=== PATIENT | male | born 1935 | race Asian ===

== ENCOUNTER 2019-01-05 15:27 | Inpatient (IN) | payer BC, MEDICAID ==
[2019-01-05 15:43] LABS: ADD MAN DIFF? NO
[2019-01-05 15:45] LABS: ABNORMAL IP MESSAGE 1; BASOPHILS % 0.2 % (0.0-2.0); EOSINOPHILS # 0.2 10^3/ul (0.0-0.5); EOSINOPHILS % 1.4 % (0.0-7.0); HEMATOCRIT 29.4 % (42.0-52.0); HEMOGLOBIN 9.2 g/dl (14.0-18.0); LYMPHOCYTES # 1.7 10^3/ul (0.8-2.9); LYMPHOCYTES % 10.1 % (15.0-51.0); MEAN CORPUSCULAR HEMOGLOBIN 30.1 pg (29.0-33.0); MEAN CORPUSCULAR HGB CONC 31.3 g/dl (32.0-37.0); MEAN CORPUSCULAR VOLUME 96.1 fl (82.0-101.0); MEAN PLATELET VOLUME 10.4 fl (7.4-10.4); MONOCYTE # 1.7 10^3/ul (0.3-0.9); MONOCYTES % 9.7 % (0.0-11.0); NEUTROPHIL # 13.2 10^3/ul (1.6-7.5); NEUTROPHILS % 77.8 % (39.0-77.0); PLATELET COUNT 199 10^3/UL (140-415); POSITIVE DIFF @See below; RED BLOOD COUNT 3.06 10^6/ul (4.70-6.10); RED CELL DISTRIBUTION WIDTH 15.7 % (11.5-14.5)
[2019-01-05] MEDS: SODIUM CHLORIDE 0.9% 1L BAG IV* (15:55)
[2019-01-05] MEDS: CEFEPIME 2GM/50 ML (PMX) 50 ML IVPB (15:56)
[2019-01-05 16:02] LABS: ALANINE AMINOTRANSFERASE 22 IU/L (13-69); ALBUMIN 3.5 g/dl (3.3-4.9); ALKALINE PHOSPHATASE 82 IU/L (42-121); ANION GAP 8 (5-13); ASPARTATE AMINO TRANSFERASE 19 IU/L (15-46); BILIRUBIN,INDIRECT 0.3 mg/dl (0-1.1); BILIRUBIN,TOTAL 0.3 mg/dl (0.2-1.3); BLOOD UREA NITROGEN 56 mg/dl (7-20); CALCIUM 8.7 mg/dl (8.4-10.2); CARBON DIOXIDE 26 mmol/L (21-31); CHLORIDE 104 mmol/L (97-110); CREATININE 1.24 mg/dl (0.61-1.24); GLUCOSE 159 mg/dl (70-220); POTASSIUM 5.1 mmol/L (3.5-5.1); SODIUM 138 mmol/L (135-144)
[2019-01-05 16:07] LABS: INR 0.89; PARTIAL THROMBOPLASTIN TIME 37.3 Sec (23.0-35.0); PROTIME 12.2 Sec (11.9-14.9)
[2019-01-05 16:10] LABS: ADD UMIC YES; UR ASCORBIC ACID 20 mg/dL (NEGATIVE); UR BACTERIA FEW /HPF (NONE SEEN); UR BILIRUBIN (Dip) NEGATIVE (NEGATIVE); UR BLOOD (Dip) NEGATIVE (NEGATIVE); UR BUDDING YEAST FEW /HPF (NONE SEEN); UR CLARITY CLEAR (CLEAR); UR COLOR STRAW (YELLOW); UR GLUCOSE (Dip) NEGATIVE (NEGATIVE); UR KETONES (Dip) NEGATIVE (NEGATIVE); UR LEUKOCYTE ESTERASE (Dip) 2+ Leu/ul (NEGATIVE); UR NITRITE (Dip) NEGATIVE (NEGATIVE); UR RBC 1 /HPF (0-5); UR SPECIFIC GRAVITY (Dip) 1.005 (1.003-1.030); UR TOTAL PROTEIN (Dip) NEGATIVE (NEGATIVE); UR UROBILINOGEN (Dip) NEGATIVE (NEGATIVE); UR WBC 12 /HPF (0-5)
[2019-01-05 16:13] LABS: TROPONIN-I 0.023 ng/ml (0.000-0.120)
[2019-01-05] MEDS: ACETAMINOPHEN 650MG/20.3ML CUP NGT (16:14)
[2019-01-05] MEDS: VANCOMYCIN 1 GM (PMX) 250 ML IVPB (16:34)
[2019-01-05 17:57] LABS: LACTIC ACID 1.2 mmol/L (0.5-2.0)
[2019-01-05] MEDS ORDERED: ONDANSETRON 4 MG INJ IV (20:00)
[2019-01-05] MEDS ORDERED: ACETAMINOPHEN 325 MG TAB PO (20:00)
[2019-01-05 20:02] LABS: LACTIC ACID 1.2 mmol/L (0.5-2.0)
[2019-01-06] MEDS ORDERED: ONDANSETRON 4 MG INJ IV
[2019-01-06] MEDS ORDERED: ACETAMINOPHEN 325 MG TAB GTB
[2019-01-06] MEDS ORDERED: ONDANSETRON 4 MG TAB GTB
[2019-01-06] MEDS ORDERED: NACL 0.9% 3 ML SYG IV
[2019-01-06 05:33] LABS: ADD MAN DIFF? NO
[2019-01-06 05:36] LABS: BASOPHIL # 0.1 10^3/ul (0.0-0.1); BASOPHILS % 0.3 % (0.0-2.0); EOSINOPHILS # 0.5 10^3/ul (0.0-0.5); EOSINOPHILS % 3.2 % (0.0-7.0); HEMATOCRIT 27.8 % (42.0-52.0); HEMOGLOBIN 8.7 g/dl (14.0-18.0); LYMPHOCYTES # 1.9 10^3/ul (0.8-2.9); MEAN CORPUSCULAR HEMOGLOBIN 30.1 pg (29.0-33.0); MEAN CORPUSCULAR HGB CONC 31.3 g/dl (32.0-37.0); MEAN CORPUSCULAR VOLUME 96.2 fl (82.0-101.0); MEAN PLATELET VOLUME 10.7 fl (7.4-10.4); MONOCYTE # 1.4 10^3/ul (0.3-0.9); MONOCYTES % 9.6 % (0.0-11.0); NEUTROPHIL # 10.8 10^3/ul (1.6-7.5); NEUTROPHILS % 72.7 % (39.0-77.0); PLATELET COUNT 179 10^3/UL (140-415); POSITIVE DIFF @See below; RED BLOOD COUNT 2.89 10^6/ul (4.70-6.10); RED CELL DISTRIBUTION WIDTH 15.9 % (11.5-14.5)
[2019-01-06 05:36] LABS: WHITE BLOOD COUNT 14.8 10^3/ul (4.8-10.8)
[2019-01-06 05:57] LABS: ALANINE AMINOTRANSFERASE 29 IU/L (13-69); ALBUMIN 3.1 g/dl (3.3-4.9); ALBUMIN/GLOBULIN RATIO 0.83; ALKALINE PHOSPHATASE 70 IU/L (42-121); ANION GAP 5 (5-13); ASPARTATE AMINO TRANSFERASE 21 IU/L (15-46); BILIRUBIN,INDIRECT 0.3 mg/dl (0-1.1); BILIRUBIN,TOTAL 0.3 mg/dl (0.2-1.3); BLOOD UREA NITROGEN 48 mg/dl (7-20); CALCIUM 8.2 mg/dl (8.4-10.2); CARBON DIOXIDE 25 mmol/L (21-31); CHLORIDE 114 mmol/L (97-110); CHOLESTEROL 106 mg/dl (100-200); CREATININE 0.91 mg/dl (0.61-1.24); GLUCOSE 89 mg/dl (70-220); HDL CHOLESTEROL 21 mg/dl (31-75); LDL CHOLESTEROL,CALCULATED 46 mg/dl; MAGNESIUM 2.5 mg/dl (1.7-2.5); POTASSIUM 4.5 mmol/L (3.5-5.1); SODIUM 144 mmol/L (135-144); TOTAL PROTEIN 6.8 g/dl (6.1-8.1); TRIGLYCERIDES 195 mg/dl (0-149)
[2019-01-06] MEDS: LANSOPRAZOLE 30 MG CAP GTB (06:06)
[2019-01-06] MEDS: FUROSEMIDE 40 MG TAB GTB (06:06)
[2019-01-06 06:54] LABS: THYROID STIMULATING HORMONE 0.824 MIU/L (0.465-4.680)
[2019-01-06] MEDS: CEFTRIAXONE 1 GM/50 ML (PMX) 50 ML IVPB (08:01)
[2019-01-06] MEDS: LINAGLIPTIN 5 MG TABLET GTB (09:00)
[2019-01-06] MEDS ORDERED: NON-FORMULARY/PATIENT OWN MED (Sitagliptin* (Januvia*) 100 MG) GTB (09:00)
[2019-01-06] MEDS: BISACODYL 10 MG SUPP PR (09:00)
[2019-01-06] MEDS: MAGNESIUM HYDROXIDE 30ML CUP GTB (09:00)
[2019-01-06 09:32] LABS: HEMOGLOBIN A1C 5.6 % (0-5.9)
[2019-01-06] MEDS: DOCUSATE SODIUM 100 MG CAP PO (09:41)
[2019-01-06] MEDS: FERROUS SULFATE 60 MG/ML 5ML CUP GTB (09:41)
[2019-01-06] MEDS: AMLODIPINE 10 MG TAB GTB (09:42)
[2019-01-06] MEDS: METOPROLOL 50 MG TAB GTB ×2 (09:43→21:50)
[2019-01-06] MEDS: HEPARIN 5,000 UNIT/1 ML VIAL SC ×2 (09:48→21:55)
[2019-01-06] MEDS: INSULIN GLARGINE [LANTus] (100 UNITS/ML) SYG SC (09:48)
[2019-01-06] MEDS ORDERED: GLUCAGON 1 MG INJ IM (10:00)
[2019-01-06] MEDS ORDERED: GLUCOSE GEL 15 GRAM TUBE BUCCAL (10:00)
[2019-01-06] MEDS ORDERED: DEXTROSE 50% 50 ML SYRINGE IV (10:00)
[2019-01-06] MEDS ORDERED: GLUCOSE GEL 15 GRAM TUBE PO ×2 (10:00)
[2019-01-06 11:06] LABS: ADD UMIC YES; UR ASCORBIC ACID 40 mg/dL (NEGATIVE); UR BACTERIA FEW /HPF (NONE SEEN); UR BILIRUBIN (Dip) NEGATIVE (NEGATIVE); UR BLOOD (Dip) 1+ mg/dL (NEGATIVE); UR BUDDING YEAST FEW /HPF (NONE SEEN); UR CLARITY TURBID (CLEAR); UR COLOR YELLOW (YELLOW); UR GLUCOSE (Dip) NEGATIVE (NEGATIVE); UR KETONES (Dip) NEGATIVE (NEGATIVE); UR LEUKOCYTE ESTERASE (Dip) 3+ Leu/ul (NEGATIVE); UR MUCUS FEW /HPF (NONE SEEN); UR NITRITE (Dip) NEGATIVE (NEGATIVE); UR NONSQUAMOUS EPITHELIAL CELL 4 /HPF (NONE SEEN); UR RBC 24 /HPF (0-5); UR SQUAMOUS EPITHELIAL CELL FEW /HPF (FEW); UR TOTAL PROTEIN (Dip) 1+ mg/dl (NEGATIVE); UR UROBILINOGEN (Dip) NEGATIVE (NEGATIVE); UR WBC > 182 /HPF (0-5)
[2019-01-06] MEDS: INSULIN ASPART [NOVOLOG] 3 ML PEN SC ×3 (11:30→21:00)
[2019-01-06] MEDS: SOD CHLORIDE 0.9% 1,000 ML IV ×2 (11:44→17:08)
[2019-01-06] MEDS: CEFEPIME 2GM/50 ML (PMX) 50 ML IVPB ×2 (11:45→21:49)
[2019-01-06] MEDS: DIGOXIN 0.125 MG TAB GTB (15:51)
[2019-01-06] MEDS: ATORVASTATIN 10 MG TAB GTB (21:49)
[2019-01-06] MEDS: HYDROCORTISONE 1% 28.35 GM OINT TOP (21:59)
[2019-01-07] MEDS: ACCU-CHEK XX (02:00)
[2019-01-07 05:32] LABS: ADD MAN DIFF? NO
[2019-01-07] MEDS: LANSOPRAZOLE 30 MG CAP GTB (05:35)
[2019-01-07] MEDS: LATANOPROST 0.005% 2.5 ML OPH BOTH EYES (05:35)
[2019-01-07 05:36] LABS: BASOPHIL # 0.1 10^3/ul (0.0-0.1); BASOPHILS % 0.7 % (0.0-2.0); EOSINOPHILS # 0.5 10^3/ul (0.0-0.5); EOSINOPHILS % 5.1 % (0.0-7.0); HEMATOCRIT 26.7 % (42.0-52.0); HEMOGLOBIN 8.5 g/dl (14.0-18.0); LYMPHOCYTES # 1.5 10^3/ul (0.8-2.9); LYMPHOCYTES % 14.3 % (15.0-51.0); MEAN CORPUSCULAR HEMOGLOBIN 30.6 pg (29.0-33.0); MEAN CORPUSCULAR HGB CONC 31.8 g/dl (32.0-37.0); MEAN PLATELET VOLUME 10.9 fl (7.4-10.4); NEUTROPHIL # 6.9 10^3/ul (1.6-7.5); NEUTROPHILS % 68.2 % (39.0-77.0); PLATELET COUNT 186 10^3/UL (140-415); RED BLOOD COUNT 2.78 10^6/ul (4.70-6.10); RED CELL DISTRIBUTION WIDTH 15.6 % (11.5-14.5)
[2019-01-07 05:36] LABS: WHITE BLOOD COUNT 10.2 10^3/ul (4.8-10.8)
[2019-01-07] MEDS: SOD CHLORIDE 0.9% 1,000 ML IV ×2 (05:43→17:07)
[2019-01-07 05:52] LABS: ANION GAP 4 (5-13); BLOOD UREA NITROGEN 36 mg/dl (7-20); CALCIUM 7.9 mg/dl (8.4-10.2); CARBON DIOXIDE 24 mmol/L (21-31); CHLORIDE 118 mmol/L (97-110); CREATININE 0.74 mg/dl (0.61-1.24); GLUCOSE 88 mg/dl (70-220); MAGNESIUM 2.3 mg/dl (1.7-2.5); PHOSPHORUS 1.8 mg/dl (2.5-4.9); POTASSIUM 4.3 mmol/L (3.5-5.1); SODIUM 146 mmol/L (135-144)
[2019-01-07 07:33] LABS: IRON 34 ug/dl (35-150)
[2019-01-07] MEDS: INSULIN ASPART [NOVOLOG] 3 ML PEN SC ×4 (07:35→21:00)
[2019-01-07 07:42] LABS: % IRON SATURATION 18 % SAT (22-52); TOTAL IRON BINDING CAPACITY 186 ug/dl (241-421)
[2019-01-07] MEDS: FERROUS SULFATE 60 MG/ML 5ML CUP GTB (09:26)
[2019-01-07] MEDS: MAGNESIUM HYDROXIDE 30ML CUP GTB (09:26)
[2019-01-07] MEDS: CEFEPIME 2GM/50 ML (PMX) 50 ML IVPB ×2 (09:26→21:52)
[2019-01-07] MEDS: AMLODIPINE 10 MG TAB GTB (09:26)
[2019-01-07] MEDS: DOCUSATE SODIUM 100 MG CAP PO (09:27)
[2019-01-07] MEDS: BISACODYL 10 MG SUPP PR (09:29)
[2019-01-07] MEDS: INSULIN GLARGINE [LANTus] (100 UNITS/ML) SYG SC (09:31)
[2019-01-07] MEDS: HEPARIN 5,000 UNIT/1 ML VIAL SC ×2 (09:31→21:53)
[2019-01-07] MEDS: HYDROCORTISONE 1% 28.35 GM OINT TOP ×2 (09:32→21:54)
[2019-01-07] MEDS: METOPROLOL 50 MG TAB GTB ×2 (09:58→21:51)
[2019-01-07 13:12] LABS: OCCULT BLOOD STOOL POSITIVE (NEGATIVE)
[2019-01-07] MEDS: DIGOXIN 0.125 MG TAB GTB (13:27)
[2019-01-07] MEDS: ATORVASTATIN 10 MG TAB GTB (21:51)
[2019-01-08] MEDS: ACCU-CHEK XX (02:00)
[2019-01-08] MEDS: LANSOPRAZOLE 30 MG CAP GTB (05:44)
[2019-01-08] MEDS: SOD CHLORIDE 0.9% 1,000 ML IV ×2 (05:45→13:38)
[2019-01-08] MEDS: INSULIN ASPART [NOVOLOG] 3 ML PEN SC ×4 (07:35→21:00)
[2019-01-08] MEDS: FERROUS SULFATE 60 MG/ML 5ML CUP GTB (08:44)
[2019-01-08] MEDS: METOPROLOL 50 MG TAB GTB ×2 (08:44→21:18)
[2019-01-08] MEDS: AMLODIPINE 10 MG TAB GTB (08:45)
[2019-01-08] MEDS: CEFEPIME 2GM/50 ML (PMX) 50 ML IVPB ×2 (08:46→21:17)
[2019-01-08] MEDS: MAGNESIUM HYDROXIDE 30ML CUP GTB (08:46)
[2019-01-08] MEDS: DOCUSATE SODIUM 100 MG CAP PO (08:46)
[2019-01-08] MEDS: BISACODYL 10 MG SUPP PR (08:47)
[2019-01-08] MEDS: HEPARIN 5,000 UNIT/1 ML VIAL SC ×2 (08:48→21:31)
[2019-01-08] MEDS: HYDROCORTISONE 1% 28.35 GM OINT TOP ×2 (09:00→21:19)
[2019-01-08] MEDS: LATANOPROST 0.005% 2.5 ML OPH BOTH EYES ×2 (09:15→23:06)
[2019-01-08] MEDS: INSULIN GLARGINE [LANTus] (100 UNITS/ML) SYG SC (09:16)
[2019-01-08] MEDS: DIGOXIN 0.125 MG TAB GTB (13:43)
[2019-01-08] MEDS: ATORVASTATIN 10 MG TAB GTB (21:18)
[2019-01-09] MEDS: SOD CHLORIDE 0.9% 1,000 ML IV ×2 (00:20→10:08)
[2019-01-09] MEDS: ACCU-CHEK XX (02:00)
[2019-01-09] MEDS: LANSOPRAZOLE 30 MG CAP GTB (06:26)
[2019-01-09] MEDS: INSULIN ASPART [NOVOLOG] 3 ML PEN SC ×4 (07:55→20:58)
[2019-01-09] MEDS: ZYVOX 600 MG TAB PO ×2 (09:59→20:57)
[2019-01-09] MEDS: FLUCONAZOLE 200 MG TAB GTB (09:59)
[2019-01-09] MEDS: METOPROLOL 50 MG TAB GTB ×2 (10:00→20:57)
[2019-01-09] MEDS: AMLODIPINE 10 MG TAB GTB (10:00)
[2019-01-09] MEDS: FERROUS SULFATE 60 MG/ML 5ML CUP GTB (10:01)
[2019-01-09] MEDS: HYDROCORTISONE 1% 28.35 GM OINT TOP ×2 (10:08→20:56)
[2019-01-09 10:33] LABS: ANION GAP 5 (5-13); BLOOD UREA NITROGEN 22 mg/dl (7-20); CALCIUM 8.6 mg/dl (8.4-10.2); CARBON DIOXIDE 26 mmol/L (21-31); CHLORIDE 117 mmol/L (97-110); CREATININE 0.54 mg/dl (0.61-1.24); GLUCOSE 118 mg/dl (70-220); MAGNESIUM 2.2 mg/dl (1.7-2.5); PHOSPHORUS 1.9 mg/dl (2.5-4.9); POTASSIUM 4.3 mmol/L (3.5-5.1); SODIUM 148 mmol/L (135-144)
[2019-01-09] MEDS: INSULIN GLARGINE [LANTus] (100 UNITS/ML) SYG SC (11:01)
[2019-01-09] MEDS: HEPARIN 5,000 UNIT/1 ML VIAL SC ×2 (11:02→20:58)
[2019-01-09] MEDS: PIPER-TAZO 3.375 GM IV (PMX) 100 ML IVPB ×2 (11:53→18:22)
[2019-01-09] MEDS: DIGOXIN 0.125 MG TAB GTB (14:23)
[2019-01-09] MEDS: LATANOPROST 0.005% 2.5 ML OPH BOTH EYES (20:56)
[2019-01-09] MEDS: ATORVASTATIN 10 MG TAB GTB (20:56)
[2019-01-10] MEDS: PIPER-TAZO 3.375 GM IV (PMX) 100 ML IVPB ×2 (00:22→05:13)
[2019-01-10 01:43] LABS: ADD UMIC YES; UR ASCORBIC ACID 20 mg/dL (NEGATIVE); UR BACTERIA FEW /HPF (NONE SEEN); UR BILIRUBIN (Dip) NEGATIVE (NEGATIVE); UR BLOOD (Dip) 3+ mg/dL (NEGATIVE); UR CLARITY CLOUDY (CLEAR); UR COLOR YELLOW (YELLOW); UR GLUCOSE (Dip) NEGATIVE (NEGATIVE); UR KETONES (Dip) NEGATIVE (NEGATIVE); UR LEUKOCYTE ESTERASE (Dip) NEGATIVE Leu/ul (NEGATIVE); UR MUCUS FEW /HPF (NONE SEEN); UR NITRITE (Dip) NEGATIVE (NEGATIVE); UR RBC > 182 /HPF (0-5); UR SPECIFIC GRAVITY (Dip) 1.016 (1.003-1.030); UR TOTAL PROTEIN (Dip) 3+ mg/dl (NEGATIVE); UR UROBILINOGEN (Dip) NEGATIVE (NEGATIVE); UR WBC 19 /HPF (0-5)
[2019-01-10] MEDS: ACCU-CHEK XX (02:00)
[2019-01-10] MEDS: LANSOPRAZOLE 30 MG CAP GTB (05:13)
[2019-01-10 06:57] LABS: WHITE BLOOD COUNT 8.8 10^3/ul (4.8-10.8)
[2019-01-10 06:57] LABS: ABNORMAL IP MESSAGE 1; HEMATOCRIT 19.1 % (42.0-52.0); MEAN CORPUSCULAR HEMOGLOBIN 29.7 pg (29.0-33.0); MEAN CORPUSCULAR HGB CONC 31.4 g/dl (32.0-37.0); MEAN CORPUSCULAR VOLUME 94.6 fl (82.0-101.0); MEAN PLATELET VOLUME 11.4 fl (7.4-10.4); POSITIVE DIFF @See below; RED BLOOD COUNT 2.02 10^6/ul (4.70-6.10); RED CELL DISTRIBUTION WIDTH 15.4 % (11.5-14.5)
[2019-01-10 07:01] LABS: PLATELET COUNT 300 10^3/UL (140-415)
[2019-01-10 07:02] LABS: ADD MAN DIFF? YES; PATH REVIEW? NO
[2019-01-10] MEDS: INSULIN ASPART [NOVOLOG] 3 ML PEN SC (07:55)
[2019-01-10 07:57] LABS: ANION GAP 5 (5-13); BLOOD UREA NITROGEN 22 mg/dl (7-20); CALCIUM 8.3 mg/dl (8.4-10.2); CARBON DIOXIDE 27 mmol/L (21-31); CHLORIDE 115 mmol/L (97-110); CREATININE 0.61 mg/dl (0.61-1.24); GLUCOSE 84 mg/dl (70-220); MAGNESIUM 2.1 mg/dl (1.7-2.5); PHOSPHORUS 1.6 mg/dl (2.5-4.9); POTASSIUM 3.6 mmol/L (3.5-5.1); SODIUM 147 mmol/L (135-144)
[2019-01-10] MEDS: HEPARIN 5,000 UNIT/1 ML VIAL SC (08:07)
[2019-01-10] MEDS: HYDROCORTISONE 1% 28.35 GM OINT TOP ×2 (08:26→20:20)
[2019-01-10] MEDS: AMLODIPINE 10 MG TAB GTB (08:27)
[2019-01-10] MEDS: FLUCONAZOLE 200 MG TAB GTB (08:27)
[2019-01-10] MEDS: METOPROLOL 50 MG TAB GTB ×2 (08:27→20:19)
[2019-01-10] MEDS: FERROUS SULFATE 60 MG/ML 5ML CUP GTB (08:28)
[2019-01-10] MEDS: INSULIN GLARGINE [LANTus] (100 UNITS/ML) SYG SC (08:37)
[2019-01-10 10:10] LABS: PROCALCITONIN 0.23 ng/mL (0.00-0.10)
[2019-01-10 10:35] LABS: ANISOCYTOSIS 1+ (0-0); BAND NEUTROPHILS #M 0.3 10^3/ul (0.0-0.6); BAND NEUTROPHILS % (M) 4 % (0-4); BASOPHILS % (M) 1 % (0-2); BURR CELLS 1+ (0-0); EOSINOPHILS % (M) 1 % (0-7); LYMPHOCYTES #M 0.6 10^3/ul (0.8-2.9); LYMPHOCYTES % (M) 7 % (15-51); METAMYELOCYTES %M 1 % (0-0); MICROCYTOSIS 1+ (0-0); MONOCYTE #M 0.8 10^3/ul (0.3-0.9); MONOCYTES % (M) 10 % (0-11); MYELOCYTES #M 0.1 10^3/ul (0.0-0.0); MYELOCYTES % (M) 2 % (0-0); PLATELET ESTIMATE NORMAL; POIKILOCYTOSIS 2+ (0-0); PROMYELOCYTES % (M) 1 % (0-0); SEG NEUT #M 6.5 10^3/ul (1.6-7.5); SEGMENTED NEUTROPHILS (M) % 73 % (39-77); SMUDGE%M 6 % (0-0)
[2019-01-10] MEDS: POTASSIUM PHOSPHATE 30 MM in SOD CHLORIDE 0.9% 250 ML IVPB (10:43)
[2019-01-10] MEDS: Insulin NOVOLOG SS MILD Algorithm (NPO/TPN/ENTERAL FEEDS) SC ×2 (11:49→17:39)
[2019-01-10] MEDS ORDERED: INSULIN ASPART [NOVOLOG] 3 ML PEN SC (12:00)
[2019-01-10] MEDS: DIGOXIN 0.125 MG TAB GTB (12:58)
[2019-01-10] MEDS: AMPICILLIN/SULB 3 GM/NS (PMX) 100 ML IVPB ×2 (13:08→17:33)
[2019-01-10] MEDS: DEXTROSE 50% 50 ML SYRINGE IV (17:36)
[2019-01-10] MEDS: ATORVASTATIN 10 MG TAB GTB (20:18)
[2019-01-10] MEDS: LATANOPROST 0.005% 2.5 ML OPH BOTH EYES (20:19)
[2019-01-11] MEDS: AMPICILLIN/SULB 3 GM/NS (PMX) 100 ML IVPB ×2 (00:06→05:29)
[2019-01-11] MEDS: ACCU-CHEK XX (02:00)
[2019-01-11 03:58] LABS: IMMEDIATE SPIN CROSSMATCH 1 4
[2019-01-11] MEDS: SOD CHLORIDE 0.9% 250 ML IV* (04:41)
[2019-01-11] MEDS ORDERED: ONDANSETRON 4 MG INJ IV (05:00)
[2019-01-11] MEDS ORDERED: NITROGLYCERIN (SL) 0.4 MG TAB SL (05:00)
[2019-01-11] MEDS ORDERED: ACETAMINOPHEN 325 MG TAB PO (05:00)
[2019-01-11] MEDS: LANSOPRAZOLE 30 MG CAP GTB (05:26)
[2019-01-11] MEDS: Insulin NOVOLOG SS MILD Algorithm (NPO/TPN/ENTERAL FEEDS) SC ×4 (05:28→17:25)
[2019-01-11] MEDS: NYSTATIN 30 GM POWDER BTL TOP (08:11)
[2019-01-11] MEDS: HYDROCORTISONE 1% 28.35 GM OINT TOP ×2 (08:11→20:25)
[2019-01-11] MEDS: BALSAM PERU/CASTOR OIL 60 GM TUBE TOP (08:12)
[2019-01-11] MEDS: METOPROLOL 50 MG TAB GTB ×2 (08:12→20:24)
[2019-01-11] MEDS: FERROUS SULFATE 60 MG/ML 5ML CUP GTB (08:12)
[2019-01-11] MEDS: FLUCONAZOLE 200 MG TAB GTB (08:13)
[2019-01-11] MEDS: AMOXICILLIN/CLAV 875 MG TAB GTB ×2 (08:13→20:24)
[2019-01-11] MEDS: AMLODIPINE 10 MG TAB GTB (08:13)
[2019-01-11] MEDS ORDERED: POVIDONE IODINE 10% 28.4 GM OINT TOP (09:00)
[2019-01-11] MEDS ORDERED: ASPIRIN 81 MG TAB PO (09:00)
[2019-01-11] MEDS: LISINOPRIL 10 MG TAB GTB (10:22)
[2019-01-11 11:37] LABS: WHITE BLOOD COUNT 12.2 10^3/ul (4.8-10.8)
[2019-01-11 11:37] LABS: ADD MAN DIFF? NO; BASOPHIL # 0.1 10^3/ul (0.0-0.1); BASOPHILS % 0.7 % (0.0-2.0); EOSINOPHILS # 0.4 10^3/ul (0.0-0.5); EOSINOPHILS % 3.2 % (0.0-7.0); HEMATOCRIT 31.1 % (42.0-52.0); HEMOGLOBIN 9.9 g/dl (14.0-18.0); LYMPHOCYTES # 1.9 10^3/ul (0.8-2.9); LYMPHOCYTES % 15.2 % (15.0-51.0); MEAN CORPUSCULAR HEMOGLOBIN 29.8 pg (29.0-33.0); MEAN CORPUSCULAR HGB CONC 31.8 g/dl (32.0-37.0); MEAN CORPUSCULAR VOLUME 93.7 fl (82.0-101.0); MEAN PLATELET VOLUME 10.2 fl (7.4-10.4); MONOCYTES % 7.8 % (0.0-11.0); NEUTROPHIL # 8.5 10^3/ul (1.6-7.5); NEUTROPHILS % 69.2 % (39.0-77.0); NUCLEATED RED BLOOD CELLS% 0.2 /100WBC (0.0-0.0); PLATELET COUNT 228 10^3/UL (140-415); RED BLOOD COUNT 3.32 10^6/ul (4.70-6.10)
[2019-01-11 11:55] LABS: ANION GAP 3 (5-13); BLOOD UREA NITROGEN 19 mg/dl (7-20); CALCIUM 8.4 mg/dl (8.4-10.2); CARBON DIOXIDE 29 mmol/L (21-31); CHLORIDE 114 mmol/L (97-110); CREATININE 0.59 mg/dl (0.61-1.24); GLUCOSE 117 mg/dl (70-220); PHOSPHORUS 2.5 mg/dl (2.5-4.9); POTASSIUM 3.9 mmol/L (3.5-5.1); SODIUM 146 mmol/L (135-144)
[2019-01-11] MEDS: DIGOXIN 0.125 MG TAB GTB (12:11)
[2019-01-11 12:53] LABS: PROCALCITONIN 0.35 ng/mL (0.00-0.10)
[2019-01-11] MEDS: ATORVASTATIN 10 MG TAB GTB (20:20)
[2019-01-11] MEDS: LATANOPROST 0.005% 2.5 ML OPH BOTH EYES (20:20)
== END 2019-01-11 22:25 | DRG 870 ==
LOC: TEL 01-08 12:00 → ICU 19:37 → E/R 15:27
PROC: 5A1955Z Respiratory Ventilation, Greater than 96 Consecutive Hours (ICD-10-PCS; 2019-01-06)
PROC: 30233N1 Transfusion of Nonautologous Red Blood Cells into Peripheral Vein, Percutaneous Approach (ICD-10-PCS; principal; 2019-01-11)
DX: A41.9 Sepsis, unspecified organism (principal); G93.41 Metabolic encephalopathy; Z99.11 Dependence on respirator [ventilator] status; G93.40 Encephalopathy, unspecified; J90 Pleural effusion, not elsewhere classified; J96.10 Chronic respiratory failure, unspecified whether with hypoxia or hypercapnia; N39.0 Urinary tract infection, site not specified; L89.152 Pressure ulcer of sacral region, stage 2; E11.22 Type 2 diabetes mellitus with diabetic chronic kidney disease; Z93.0 Tracheostomy status; L89.621 Pressure ulcer of left heel, stage 1; L89.611 Pressure ulcer of right heel, stage 1; L89.892 Pressure ulcer of other site, stage 2; J44.9 Chronic obstructive pulmonary disease, unspecified; R31.9 Hematuria, unspecified; Z93.1 Gastrostomy status; R13.10 Dysphagia, unspecified; D63.8 Anemia in other chronic diseases classified elsewhere; I12.9 Hypertensive chronic kidney disease with stage 1 through stage 4 chronic kidney disease, or unspecified chronic kidney disease; N18.9 Chronic kidney disease, unspecified; Z79.4 Long term (current) use of insulin; B37.9 Candidiasis, unspecified; B96.5 Pseudomonas (aeruginosa) (mallei) (pseudomallei) as the cause of diseases classified elsewhere; B95.2 Enterococcus as the cause of diseases classified elsewhere
CPT/HCPCS: 36415; 36430; 70450; 71045; 74176; 80048; 80053; 80061; 81001; 82270; 82728; 82962; 83036; 83540; 83605; 83735; 84100; 84145; 84443; 84484; 85025; 85610; 85730; 86850; 86870; 86900; 86901; 86920; 87040-91; 87045; 87070; 87081; 87086; 93005; 94002; 94003; 94770; 96374; 96375; 99285-25